=== PATIENT | male | born 1990 | race Caucasian/White ===

== ENCOUNTER 2017-02-24 07:13 | Emergency (ER) | payer OTHER ==
[2017-02-24 07:18] VITALS: BP 126/71; PULSE 92; RESP 16; TEMP 98.6; O2SAT 96
--- NOTE | 2017-02-24 07:24 | EDPHY ---
H & P Stated Complaint: Sore throat since Wednesday Time Seen by Provider: 02/24/17 07:23 - Personal History Current Tetanus Diphtheria and Acellular Pertussis (TDAP): Yes - Medical/Surgical History Hx Asthma: No Hx Chronic Respiratory Disease: No Hx Diabetes: No Hx Cardiac Disease: No Hx Renal Disease: No Hx Cirrhosis: No Hx Alcoholism: No Hx HIV/AIDS: No Hx Splenectomy or Spleen Trauma: No Other PMH: Denies - Social History Smoking Status: Current every day smoker Constitutional: Initial Vital Signs Temperature (C) 37 C 02/24/17 07:14 Heart Rate 92 02/24/17 07:14 Respiratory Rate 16 02/24/17 07:14 Blood Pressure 126/71 H 02/24/17 07:14 O2 Sat (%) 96 02/24/17 07:14 O2 Delivery Mode Room Air Allergies/Adverse Reactions: No Known Allergies Allergy (Verified 02/24/17 07:13) Home Medications: Medication Instructions Recorded Cephalexin [Keflex (RX)] 500 mg PO TID #30 cap 02/24/17 predniSONE 40 mg PO DAILY #10 tab 02/24/17 Medical Decision Making ED Course/Re-evaluation: CHIEF COMPLAINT: Sore throat HISTORY OF PRESENT ILLNESS: This patient is a healthy 27 year old male complaining of sore throat onset two days ago. He has been fatigued since onset. He endorses subjective fever with hot and cold sweats. His throat pain has worsened since onset. He denies history of past mononucleosis infections. He denies any known ill contacts, but is exposed to many people daily at work. He denies cough, chest pain, shortness of breath, vomiting, diarrhea, urinary complaints, or other associated symptoms. REVIEW OF SYSTEMS: A 10 point review of systems was performed and is negative with the exception of the elements mentioned in the history of present illness. PHYSICAL EXAM: HR, BP, O2 Sat, RR. Temp noted General Appearance: Alert, well hydrated, appropriate, and non-toxic appearing. Head: Atraumatic without scalp tenderness or obvious injury Eyes: Pupils equal, round, reactive to light and accommodation, EOMI, no trauma , no injection. Ears: Clear bilaterally, no perforation, normal landmarks Nose: Atraumatic, no rhinorrhea, clear. Throat: Pharyngeal erythema. Bilateral tonsillar hypertrophy, erythematous with exudates. Mucus membranes moist. Neck: Submandibular gland adenopathy, right greater than left. Posterior cervical adenopathy. Supple, nontender. Respiratory: No retractions, no distress, no wheezes, and no accessory muscle use. Lungs are clear to auscultation bilaterally. Cardiovascular: Regular rate and rhythm, no murmurs, rubs, or gallops. Good capillary refill all extremities. Gastrointestinal: Abdomen is soft, nontender, non-distended. Musculoskeletal: Normal active ROM of all extremities, atraumatic. Neurological: Alert, appropriate, and interactive. Nonfocal neuro exam. Skin: No rashes, good turgor, no nodules on palpation. Past medical history: Denies Past surgical history: Noncontributory Family history: Noncontributory Social history: Single. Lives in [place]. Employed. DIFFERENTIAL DIAGNOSIS: The differential diagnosis for the patient's fever included but was not limited to acute pharyngitis, strep throat, mononucleosis, viral syndrome, meningitis, and sepsis. MEDICAL DECISION MAKIN27 year old male presents with two day history of sore throat, fever, and fatigue. Exam reveals pharyngeal erythema and bilateral tonsillar hypertrophy, erythematous with exudates. The patient has submandibular gland adenopathy, right greater than left and posterior cervical adenopathy. I discussed differential diagnoses for the patient's symptoms, including posterior cervical adenopathy being pathognomonic for mononucleosis. Given the patient's presentation, treatment for bacterial infection is warranted. The patient declines testing for mono at this time. Plan to discharge home in good condition with prescriptions for Keflex and Prednisone for symptom relief. Administered initial dose of 500mg PO Keflex and 60mg PO Prednisone here in the emergency department. Discussed follow up and return precautions. The patient is comfortable with this plan. - Data Points Medications Given: Discontinued Medications Cephalexin HCl (Keflex) 500 mg PO EDNOW ONE PRN Reason: Protocol Stop: 02/24/17 07:40 Last Admin: 02/24/17 07:55 Dose: 500 mg Prednisone (Prednisone) 60 mg PO EDNOW ONE Stop: 02/24/17 07:40 Last Admin: 02/24/17 07:55 Dose: 60 mg Departure - Departure Disposition: Home, Routine, Self-Care Clinical Impression: Acute pharyngitis Qualifiers: Pharyngitis/tonsillitis etiology: other specified organisms Qualified Code(s): J02.8 - Acute pharyngitis due to other specified organisms Condition: Good Instructions: Cephalexin (By mouth), Prednisone (By mouth), Pharyngitis (ED) Additional Instructions: 1. Take Keflex as prescribed. It is important to finish your entire course of antibiotics even if you are feeling better. 2. Take Prednisone as prescribed. 3. Follow up with your primary care provider for continued evaluation. 4. Return to the emergency department if you develop chest pain, shortness of breath, uncontrollable fever, vomiting, severe head or neck pain, or other worsening of condition. Adult Pain & Fever Control: We recommend Acetaminophen (Tylenol) and Ibuprofen (Motrin,Advil) for pain and fever control. When fever is high or pain severe, both drugs can be used at the same time, but at different intervals. Please note the time differences. Your dose is: Acetaminophen 650mg every 4 to 6 hours Ibuprofen 600mg every 6-8 hours with food Note: do not take Acetaminophen with Hydrocodone (Vicodin, Lortab) or Oxycodone (Percocet). These medications also contain Acetaminophen. No more than 3000mg of Acetaminophen should be taken in 24 hours (for an adult). Referrals: Hannah Thomas MD [Medical Doctor] - As per Instructions Prescriptions: Cephalexin [Keflex (RX)] 500 mg PO TID #30 cap predniSONE 40 mg PO DAILY #10 tab Report Scribed for: Edwin Miles Report Scribed by: Pallavi Genao Date of Report: 02/24/17 Time of Report: 08:14
[2017-02-24] MEDS ORDERED: predniSONE 20 MG TAB PO ONE (07:39)
[2017-02-24] MEDS ORDERED: CEPHALEXIN 500 MG CAP PO ONE (07:39)
== END 2017-02-24 07:58 | disposition home or self-care (01) ==
DX: J02.9 Acute pharyngitis, unspecified (principal); F17.200 Nicotine dependence, unspecified, uncomplicated

== ENCOUNTER 2017-07-08 16:48 | Emergency (ER) | payer OTHER ==
[2017-07-08 16:56] VITALS: RESP 16; TEMP 98.2
--- NOTE | 2017-07-08 17:59 | EDPHY ---
H & P Stated Complaint: red blood in stool , adb pain Time Seen by Provider: 07/08/17 17:58 HPI/ROS: HPI: This is a 27-year-old male who presents with Chief Complaint: Red blood in stool, abdominal pain Location: Generalized abdomen Quality: Pain Duration: 1 month Signs and Symptoms: no fever, + nausea, no vomiting, no hematemesis, no blood in stool, no abdominal bloating, no diarrhea, no back pain, no urinary symptoms , no testicular/groin pain, no indigestion, no chest pain, no shortness of breath Timing: Daily Severity: [id number] Context: Patient is generally healthy, presents with complaints of generalized abdominal pain described as sharp in nature at times that is not related to eating accompanied by early satiety, bloating. Patient reports that he had 1 episode of blood in his stool today. Denies any history of hemorrhoids. Reports that he does not have a bowel movement every day. No history of inflammatory bowel disease personally or in his family. Denies any fever/ diarrhea/vomiting/weight loss. Patient has not noticed any abdominal complaints associated with certain foods. Modifying Factors: None Comment: ROS: see HPI Constitutional: No fever, no chills, no weight loss Eyes: No blurred vision Respiratory: No shortness of breath, no cough Cardiovascular: No chest pain, no palpitations Gastrointestinal: + nausea, no vomiting, no diarrhea, no hematemesis, + blood in stool Genitourinary: No dysuria, no blood in urine Extremities: No myalgias, no edema Neurologic: No weakness, no numbness Skin: No rashes, no petechiae Hematologic: No bruising, no bleeding MEDICAL/SURGICAL/SOCIAL HISTORY: Medical history: Generally healthy. Does not take any regular medications. Surgical history: Denies Social history: Family history noncontributory. Tobacco user. CONSTITUTIONAL: Extremely well-appearing, young adult white male, awake and alert, no obvious distress HEENT: Atraumatic and normocephalic, PERRL, EOMI. Tympanic membranes clear. Oropharynx clear, no exudate and moist pink mucosa. Airway patent. No lymphadenopathy. No meningismus. Cardiovascular: Normal S1/S2, regular rate, regular rhythm, without murmur rub or gallop. PULMONARY/CHEST: Symmetrical and nontender. Clear to auscultation bilaterally. Good air movement. No accessory muscle usage. ABDOMEN: Soft, nondistended, nontender, no rebound, no guarding, no peritoneal signs, no masses or organomegaly. No CVAT. Bowel sounds heard x4 quadrants. RECTAL: Good sphincter tone, light brown stool in vault, no external hemorrhoids , no fissures, no palpable masses, guaiac negative EXTREMITIES: 2/2 pulses, strength 5/5, no deformities, no clubbing, no cyanosis or edema. NEUROLOGICAL: no focal neuro deficits. GCS 15. SKIN: Warm and dry, no erythema. no rash. Good capillary refill. Source: Patient Exam Limitations: No limitations - Personal History Current Tetanus Diphtheria and Acellular Pertussis (TDAP): Yes - Medical/Surgical History Hx Asthma: No Hx Chronic Respiratory Disease: No Hx Diabetes: No Hx Cardiac Disease: No Hx Renal Disease: No Hx Cirrhosis: No Hx Alcoholism: No Hx HIV/AIDS: No Hx Splenectomy or Spleen Trauma: No Other PMH: Denies - Social History Smoking Status: Current every day smoker Constitutional: Initial Vital Signs Temperature (C) 36.8 C 07/08/17 16:54 Heart Rate 74 07/08/17 16:54 Respiratory Rate 16 07/08/17 16:54 Blood Pressure 130/74 H 07/08/17 16:54 O2 Sat (%) 98 07/08/17 16:54 O2 Delivery Mode Room Air Allergies/Adverse Reactions: No Known Allergies Allergy (Verified 02/24/17 07:13) Home Medications: Medication Instructions Recorded Dicyclomine [Bentyl 20 MG (*)] 20 mg PO QID PRN #12 tab 07/08/17 Medical Decision Making ED Course/Re-evaluation: Labs, CT abdomen and pelvis scan, stool guaiac ordered Vital signs reviewed and afebrile with no systemic signs. Guaiac negative 1850: Labs reviewed; no signs of anemia/acute kidney injury/transaminitis/ electrolyte imbalance/leukocytosis 1930: Called by radiologist who advised that CT abdomen and pelvis scan shows no acute intra-abdominal process Given Bentyl 20 mg; industrial engineering analyst film shows nonobstructive bowel gas pattern with moderate stool burden Reassessed patient; abdomen soft and nontender; doubt surgical abdomen Passed p. O. Trial prior to discharge This patient was seen under the supervision of my secondary supervising physician. I evaluated care for this patient independently. Differential Diagnosis: Abdominal pain including but not limited to appendicitis, cholecystitis, gastritis and urinary tract infection. - Data Points Laboratory Results: Laboratory Results 07/08/17 18:15 07/08/17 18:15 07/08/17 07/08/17 07/08/17 18:15 18:15 18:15 WBC 7.23 10^3/uL 10^3/uL (3.80-9.50) RBC 4.80 10^6/uL 10^6/uL (4.40-6.38) Hgb 15.3 g/dL g/dL (13.7-17.5) Hct 43.0 % % (40.0-51.0) MCV 89.6 fL fL (81.5-99.8) MCH 31.9 pg pg (27.9-34.1) MCHC 35.6 g/dL g/dL (32.4-36.7) RDW 12.0 % % (11.5-15.2) Plt Count 202 10^3/uL 10^3/uL (150-400) MPV 9.6 fL fL (8.7-11.7) Neut % (Auto) 53.6 % % (39.3-74.2) Lymph % (Auto) 34.3 % % (15.0-45.0) Newton % (Auto) 7.6 % % (4.5-13.0) Eos % (Auto) 3.7 % % (0.6-7.6) Baso % (Auto) 0.4 % % (0.3-1.7) Nucleat RBC Rel Count 0.0 % % (0.0-0.2) Absolute Neuts (auto) 3.87 10^3/uL 10^3/uL (1.70-6.50) Absolute Lymphs (auto) 2.48 10^3/uL 10^3/uL (1.00-3.00) Absolute Monos (auto) 0.55 10^3/uL 10^3/uL (0.30-0.80) Absolute Eos (auto) 0.27 10^3/uL 10^3/uL (0.03-0.40) Absolute Basos (auto) 0.03 10^3/uL 10^3/uL (0.02-0.10) Absolute Nucleated RBC 0.00 10^3/uL 10^3/uL (0-0.01) Immature Gran % 0.4 % % (0.0-1.1) Immature Gran # 0.03 10^3/uL 10^3/uL (0.00-0.10) PT 14.0 SEC SEC (12.0-15.0) INR 1.06 (0.83-1.16) APTT 27.4 SEC SEC (23.0-38.0) Sodium 144 mEq/L mEq/L (135-145) Potassium 3.7 mEq/L mEq/L (3.5-5.2) Chloride 105 mEq/L mEq/L (97-110) Carbon Dioxide 27 mEq/l mEq/l (22-31) Anion Gap 12 mEq/L mEq/L (8-16) BUN 17 mg/dL mg/dL (7-23) Creatinine 0.9 mg/dL mg/dL (0.7-1.3) Estimated GFR > 60 Glucose 85 mg/dL mg/dL (70-100) Calcium 9.7 mg/dL mg/dL (8.5-10.4) Total Bilirubin 0.4 mg/dL mg/dL (0.1-1.4) Conjugated Bilirubin 0.3 mg/dL mg/dL (0.0-0.5) Unconjugated Bilirubin 0.1 mg/dL mg/dL (0.0-1.1) AST 27 IU/L IU/L (17-59) ALT 47 IU/L IU/L (21-72) Alkaline Phosphatase 73 IU/L IU/L (38-126) Total Protein 7.4 g/dL g/dL (6.3-8.2) Albumin 4.6 g/dL g/dL (3.5-5.0) Lipase 102 IU/L IU/L (23-300) Stool Occult Bld Scrn 07/08/17 18:00 WBC RBC Hgb Hct MCV MCH MCHC RDW Plt Count MPV Neut % (Auto) Lymph % (Auto) Newton % (Auto) Eos % (Auto) Baso % (Auto) Nucleat RBC Rel Count Absolute Neuts (auto) Absolute Lymphs (auto) Absolute Monos (auto) Absolute Eos (auto) Absolute Basos (auto) Absolute Nucleated RBC Immature Gran % Immature Gran # PT INR APTT Sodium Potassium Chloride Carbon Dioxide Anion Gap BUN Creatinine Estimated GFR Glucose Calcium Total Bilirubin Conjugated Bilirubin Unconjugated Bilirubin AST ALT Alkaline Phosphatase Total Protein Albumin Lipase Stool Occult Bld Scrn NEGATIVE (NEGATIVE) Departure - Departure Disposition: Home, Routine, Self-Care Clinical Impression: Generalized abdominal pain Irritable bowel Qualifiers: Irritable bowel syndrome type: unspecified Qualified Code(s): K58.9 - Irritable bowel syndrome without diarrhea Condition: Good Instructions: Irritable Bowel Syndrome (ED), Constipation (ED), Polyethylene Glycol 3350 (By mouth), Dicyclomine (By mouth) Additional Instructions: CT abdomen and pelvis scan shows no acute intra-abdominal process. It does show a nonobstructive gas pattern with moderate stool burden. Please take Bentyl 3 times a day as needed for irritable bowel symptoms. Take [id number] MiraLax daily as needed for constipation. Please keep a food journal to identify foods that cause GI distress and then avoid them. Follow-up with Gastroenterology in 1-2 weeks if symptoms persist. Referrals: Giovanni Mccord MD [Medical Doctor] - As per Instructions Prescriptions: Dicyclomine [Bentyl 20 MG (*)] 20 mg PO QID PRN #12 tab PRN Reason: Gi Distress
[2017-07-08] MEDS ORDERED: IOPAMIDOL (ISOVUE-300) 100 ML BTL ONE (18:15)
[2017-07-08 18:25] LABS: PLATELET COUNT 202 10^3/uL (150-400)
[2017-07-08 18:33] LABS: INR 1.06 (0.83-1.16)
[2017-07-08] MEDS ORDERED: DICYCLOMINE 10 MG CAP PO ONE (19:34)
[2017-07-08 20:08] VITALS: BP 122/40; PULSE 78; O2SAT 96
== END 2017-07-08 20:08 | disposition home or self-care (01) ==
DX: K58.9 Irritable bowel syndrome, unspecified (principal); F17.200 Nicotine dependence, unspecified, uncomplicated
CPT/HCPCS: Q9967